=== PATIENT | male | born 1985 | race African-American/Black ===

== ENCOUNTER 2020-03-29 17:35 | Emergency (ER) | payer OTHER ==
[~2020-03-29] VITALS: Ht 185.4 cm; Wt 93.4 kg
[2020-03-29 17:58] VITALS: BP 104/62
--- NOTE | 2020-03-29 18:17 | Emergency Room Report ---
History of Present Illness General Chief Complaint: Upper Respiratory Illness Source: Patient Present Illness HPI 34-year-old male with no significant past medical history here complaining of waking up today being short of breath however denies cough and congestion, loss of taste and smell, abdominal pain, nausea vomiting diarrhea. Reports that he has been walking a lot and feels dehydrated however vital signs are within normal limits. Is able to tolerate oral hydration. Vital signs within normal limit and afebrile. Denies chest pain chest pain radiation. Reports that he has been a smoker for the past 7 to 10 years and also smokes marijuana on a daily basis. Has not taken medication for symptom relief. Denies being around a big crowd of people. Appears to be disheveled. Denies any recent travel. Allergies: Coded Allergies: PENICILLINS (Verified Allergy, Unknown, 03/29/20) COVID-19 Screening Contact w/high risk pt: No Recent Travel to affected area: No Experienced COVID-19 symptoms?: Yes COVID-19 symptoms experienced: Shortness of Breath COVID-19 Testing performed FINANCIAL ECONOMIST: No Patient History Past Medical History: see triage record Past Surgical History: none Pertinent Family History: none Social History: Reports: smoking - Smoking 7 cigarettes a day for the past 18 years, drug use - Daily use of marijuana Immunizations: UTD Reviewed Nursing Documentation: PMH: Agreed; PSxH: Agreed Nursing Documentation-PMH Past Medical History: No Stated History Review of Systems All Other Systems: negative except mentioned in HPI Physical Exam Vital Signs Date Time Temp Pulse Resp B/P (MAP) Pulse Ox O2 Delivery O2 Flow Rate FiO2 03/29/20 17:52 98.2 96 20 104/62 (76) 97 Room Air Sp02 EP Interpretation: reviewed, normal General Appearance: no apparent distress, alert, GCS 15, non-toxic Head: normocephalic, atraumatic Eyes: bilateral eye normal inspection, bilateral eye PERRL ENT: hearing grossly normal, normal pharynx, no angioedema, normal voice Neck: full range of motion, supple/symm/no masses Respiratory: chest non-tender, lungs clear, normal breath sounds, no rhonchi, no wheezing, speaking full sentences Cardiovascular #1: regular rate, rhythm, no edema, no murmur Gastrointestinal: normal bowel sounds, non tender, soft, non-distended, no guarding, no rebound Rectal: deferred Genitourinary: no CVA tenderness Musculoskeletal: back normal Neurologic: alert, motor strength/tone normal, oriented x3, sensory intact, responsive, speech normal Psychiatric: judgement/insight normal, memory normal, mood/affect normal, no suicidal/homicidal ideation Skin: no rash Lymphatic: no adenopathy Medical Decision Making PA Attestation All my diagnosis and treatment plans were reviewed ad discussed with my supervising physician Dr. Hernandez Diagnostic Impression: Primary Impression: SOB (shortness of breath) Additional Impressions: Dehydration Upper respiratory infection ER Course 34-year-old male with no significant past medical history here complaining of waking up today being short of breath however denies cough and congestion, loss of taste and smell, abdominal pain, nausea vomiting diarrhea. Reports that he has been walking a lot and feels dehydrated however vital signs are within normal limits. Is able to tolerate oral hydration. Vital signs within normal limit and afebrile. Denies chest pain chest pain radiation. Reports that he has been a smoker for the past 7 to 10 years and also smokes marijuana on a daily basis. Has not taken medication for symptom relief. Denies being around a big crowd of people. Appears to be disheveled. Denies any recent travel. Ddx considered but are not limited to: Coronavirus, bronchitis, PNA, URI viral, bacterial bronchitis Vital signs: are WNL, pt. is afebrile H&PE are most consistent with: Shortness of breath and upper respiratory infection possibly due to coronavirus, dehydration however no IV fluid needed patient tolerating oral hydration Nausea vomiting ORDERS: Chest x-ray, albuterol, prednisone, azithromycin due to patient smoking status ED INTERVENTIONS: None required at this time. DISCHARGE: At this time pt. is stable for d/c to home. Will provide printed patient care instructions, and any necessary prescriptions. Care plan and follow up instructions have been discussed with the patient prior to discharge. Patient take medication as directed, follow-up primary doctor, increase oral hydration, gave coughing information to across the street. Tested for COVID. If worsening symptoms return to the emergency room Chest X-Ray Diagnostic Results Chest X-Ray Diagnostic Results : Chest X-Ray Ordered: Yes # of Views/Limited/Complete: 1 View Indication: Shortness of Breath EP Interpretation: Yes PABLO Xray: Interpretation reviewed, by supervising MD, and agrees with findings. Interpretation: no consolidation, no effusion, no pneumothorax Impression: No acute disease Electronically Signed by: Ama Shahid PA-C Last Vital Signs Date Time Temp Pulse Resp B/P (MAP) Pulse Ox O2 Delivery O2 Flow Rate FiO2 03/29/20 17:58 98.2 20 104/62 97 Room Air 03/29/20 17:58 96 Disposition: HOME, SELF-CARE Scripts Albuterol Sulfate (VENTOLIN HFA) 18 Gm Hfa.aer.ad 2 PUFFS INH EVERY 6 HOURS, #18 GM 0 Refills Prov: Ama Mcdonald 03/29/20 Prednisone* (PREDNISONE*) 20 Mg Tablet 40 MG ORAL DAILY for 5 Days, #10 TAB Prov: Ama Mcdonald 03/29/20 Azithromycin* (ZITHROMAX*) 250 Mg Tablet 250 MG ORAL DAILY, #6 TAB 0 Refills Take two tables once daily for 1 day, then one tablet once daily for 4 days. Prov: Ama Mcdonald 03/29/20 Patient Instructions: Dehydration, Adult, [id number], Shortness of Breath, [id number], Upper Respiratory Infection, Adult Additional Instructions: Take medication as directed, follow primary doctor, increase oral hydration, self quarantine for 14 days, I attached contact information to the [facility] testing center which is across the street highly recommend that you make appointment with them if symptoms do not improve in 2 to 3 days. If worsening symptoms return to the emergency room Ama Mcdonald Mar 29, 2020 18:17
[2020-03-29] MEDS ORDERED: PREDNISONE20 MG ORAL (18:18)
[2020-03-29] MEDS ORDERED: VENTOLIN HFA18 GM INH (18:18)
[2020-03-29] MEDS ORDERED: ZITHROMAX250 MG ORAL (18:18)
[2020-03-29 18:23] VITALS: BP 104/62
--- NOTE | 2020-03-30 13:04 | Diagnostic Imaging Report ---
Indication: Shortness of breath Technique: One view of the chest Comparison: none Findings: Lungs and pleural spaces are clear. Heart size is normal. Impression: No acute process
== END 2020-03-29 18:22 | disposition home or self-care (01) ==
LOC: EMR 18:14
DX: R06.02 Shortness of breath (principal); E86.0 Dehydration; J06.9 Acute upper respiratory infection, unspecified; Z88.0 Allergy status to penicillin; F17.210 Nicotine dependence, cigarettes, uncomplicated
CPT/HCPCS: 71045; Z7502; 99283

== ENCOUNTER 2020-08-07 21:37 | Emergency (ER) | payer OTHER ==
[~2020-08-07] VITALS: Ht 185.4 cm; Wt 111.1 kg
[~2020-08-07 21:37] MED LIST: PREDNISONE20 MG ORAL; VENTOLIN HFA18 GM INH; ZITHROMAX250 MG ORAL
--- NOTE | 2020-08-07 21:40 | NUR ---
ED Nurse Note: Pt not in waiting room
--- NOTE | 2020-08-07 21:58 | Emergency Room Report ---
History of Present Illness General Chief Complaint: Dyspnea/Respdistress Source: Patient Present Illness HPI Patient is a 34-year-old male presents for increased shortness of breath. Had brief episode of shortness of breath . Patient a prior history of asthma. He had run out of his inhaler. Denies any fever or cough. Denies any leg pain or swelling. No prior cardiac history. Has no prior history of hypertension or diabetes. Is a daily marijuana smoker. Patient denies any other current complaints. Patient denies any current shortness of breath or chest pain. 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 Patient History Past Medical History: see triage record Reviewed Nursing Documentation: PMH: Agreed; PSxH: Agreed Nursing Documentation-PMH Past Medical History: No History, Except For Hx Asthma: Yes Review of Systems All Other Systems: negative except mentioned in HPI Physical Exam Vital Signs Date Time Temp Pulse Resp B/P (MAP) Pulse Ox O2 Delivery O2 Flow Rate FiO2 08/07/20 21:47 98.2 77 20 122/72 (89) 95 Room Air General Appearance: well appearing, no apparent distress, alert, GCS 15 Head: normocephalic, atraumatic ENT: hearing grossly normal, normal voice Neck: full range of motion, supple Respiratory: lungs clear, normal breath sounds, no respiratory distress, speaking full sentences Cardiovascular #1: normal inspection, regular rate, rhythm, no edema Gastrointestinal: normal inspection Musculoskeletal: normal inspection, no calf tenderness Neurologic: alert, motor strength/tone normal, software development coordinator III-XII nml as tested, normal gait Psychiatric: mood/affect normal Skin: no rash Medical Decision Making Diagnostic Impression: Primary Impression: Asthma ER Course Patient presented for a brief episode of shortness of breath. Differential diagnosis include was not limited to asthma, pneumonia, coronavirus infection among others. Patient has a benign exam and does not appear to require any imaging or laboratory testing at this time. Patient does not have any known cardiac risk factors and does not appear to have any evidence of acute cardiac disease at this time. Patient states he is here for a refill of inhaler. Patient was noted to be smoking marijuana in the parking lot. Does not appear to have any evidence of any active disease at this time. Chest x-ray was ordered to evaluate for possible pneumothorax. Chest x-ray showed no evidence of acute pathology. His lung sounds are clear. He has good air movement. Patient appears to be stable for outpatient management. He was given prescription for albuterol. He was advised to follow-up with his doctor for recheck. He is to return if worse. 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 There may be some rail switch operator discrepancies related to use of this software EKG Diagnostic Results Rate: normal - 71 Rhythm: NSR ST Segments: no acute changes Last Vital Signs Date Time Temp Pulse Resp B/P (MAP) Pulse Ox O2 Delivery O2 Flow Rate FiO2 08/07/20 21:47 98.2 77 20 122/72 (89) 95 Room Air Status: improved Disposition: HOME, SELF-CARE Condition: Stable Scripts Albuterol Sulfate (VENTOLIN HFA) 18 Gm Hfa.aer.ad 2 PUFFS INH EVERY 6 HOURS, #18 GM 0 Refills Prov: Dashawn Caba MD 08/07/20 Dashawn Caba MD Aug 07, 2020 21:58
[2020-08-07] MEDS ORDERED: VENTOLIN HFA18 GM INH (21:59)
--- NOTE | 2020-08-07 22:00 | NUR ---
ED Nurse Note: Pt ambulated to ED from home c/o SOB and chest tightness after running out of his inhaler. Pt outside smoking currently. VSS. Pt with audible mild wheezes. Pt placed in isolation room, ERMD at bedside. Spo2 100% on room air
--- NOTE | 2020-08-07 22:13 | Diagnostic Imaging Report ---
EXAM: XR Chest, 1 View CLINICAL HISTORY: SOB TECHNIQUE: Frontal view of the chest. COMPARISON: FINDINGS: Lungs: Low lung volumes with bronchovascular crowding. No consolidation, pleural effusion, or pneumothorax. Pleural space: See above. Heart: Unremarkable. No cardiomegaly. Mediastinum: Unremarkable. Bones/joints: No acute abnormality IMPRESSION: 1. Low lung volumes with bronchovascular crowding. 2. Otherwise no acute cardiopulmonary disease. 3. If there is continued concern, recommend frontal and lateral chest radiographs or CT.
[2020-08-07 22:15] VITALS: BP 122/72
--- NOTE | 2020-08-07 22:15 | NUR ---
ER DISCHARGE NOTE: Patient is cleared to be discharged per ERMD, pt is aox4, on room air, with stable vital signs. pt was given dc and prescription instructions, pt was able to verbalize understanding, pt id band removed. pt is able to ambulate with steady gait. pt took all belongings.
--- NOTE | 2020-08-08 19:30 | Cardiology Report ---
APPROVED REPORT EKG Measurement Heart [id number] <Conclusion> Normal sinus rhythm Normal ECG
== END 2020-08-07 22:15 | disposition home or self-care (01) ==
LOC: EMR 22:06
DX: J45.909 Unspecified asthma, uncomplicated (principal); Z88.0 Allergy status to penicillin; F12.90 Cannabis use, unspecified, uncomplicated
CPT/HCPCS: 71045; 93005; Z7502; 99283

== ENCOUNTER 2020-09-15 01:25 | Emergency (ER) | payer OTHER ==
[~2020-09-15] VITALS: Ht 185.4 cm; Wt 104.3 kg
--- NOTE | 2020-09-15 01:32 | Emergency Room Report ---
History of Present Illness General Chief Complaint: Male Urogenital Problems Source: Patient Present Illness [facility] Disclaimer: Please note that this report is being documented using DRAGON technology. This can lead to erroneous entry secondary to incorrect interpretation by the dictating instrument. HPI: 34-year-old male presents for evaluation of testicular pain. Symptom onset 2 hours ago. He states he awoke feeling aching in both of his testicles over the posterior aspect as well as posterior swelling. Denies swelling of the scrotum or in the groins. Denies masses or bulging. Denies penile discharge, discomfort, dysuria, hematuria. No sexual contact for the last 6 months. Denies fever, chills, abdominal pain, nausea, vomiting. Denies recent trauma. 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 EOMI. Resp: Normal work of breathing Abdomen: Soft, nontender, nondistended. New: Circumcised male. Testicles in anatomic position. Tender to palpation over posterior aspect. No mass identified. No inguinal defects. No hernia. No discharge or drainage or bleeding. Cremasteric reflex present bilaterally. Skin: Intact. No abrasions, laceration or rash over the exposed skin MSK: Normal tone and bulk. Moving all extremities. No obvious deformity. Neuro: Awake and alert. Mentating appropriately Medical Decision Making Diagnostic Impression: Primary Impression: Hydrocele of testis ER Course Is a 34-year-old male presenting for evaluation of testicular pain. Differential includes was not limited to epididymitis, orchitis, hydrocele, raine ticular torsion, UTI, hernia among others. No palpable hernia. No clinical signs of testicular torsion. Preliminary ultrasound report shows bilateral hydroceles with right greater than left. No evidence of epididymitis, torsion, mass identified. Will refer to outpatient urology. Laboratory Tests Test 09/15/20 02:25 Urine Color Yellow Urine Appearance Clear Urine pH 5 (4.5-8.0) Urine Specific [place] 1.025 (1.005-1.035) Urine Protein Negative (NEGATIVE) Urine Glucose (UA) Negative (NEGATIVE) Urine Ketones Negative (NEGATIVE) Urine Blood Negative (NEGATIVE) Urine Nitrite Negative (NEGATIVE) Urine Bilirubin Negative (NEGATIVE) Urine Urobilinogen 1 MG/DL (0.0-1.0) H Urine Leukocyte Esterase 1+ (NEGATIVE) H Urine RBC 0 /HPF (0 - 0) Urine WBC 0-2 /HPF (0 - 0) Urine Squamous Epithelial Cells Few /LPF (NONE/OCC) Urine Bacteria None /HPF (NONE) Last Vital Signs Date Time Temp Pulse Resp B/P (MAP) Pulse Ox O2 Delivery O2 Flow Rate FiO2 09/15/20 01:24 98.4 86 18 150/77 (101) 97 Room Air Disposition: HOME, SELF-CARE Condition: Stable Scripts Diphenhydramine HCl/Zinc Acet (Benadryl Itch Stopping Crm) 28.3 Gm Cream..g. 1 APPLIC TOPIC DAILY, #1 TUBE Prov: Anish Torres MD 09/15/20 Ibuprofen* (MOTRIN*) 600 Mg Tablet 600 MG ORAL Q6H PRN for For Pain, #30 TAB 0 Refills Prov: Anish Torres MD 09/15/20 Anish Torres MD Sep 15, 2020 01:32
[2020-09-15] MEDS ORDERED: Morphine Sulfate 2mg/ml Inj(IV/IM USE ONLY) IM ONE (01:45)
--- NOTE | 2020-09-15 01:57 | NUR ---
ED Nurse Note: Ultrasound at bedside.
[2020-09-15] MEDS ORDERED: IBUPROFEN600 M1 ORAL (02:16)
[2020-09-15 02:34] LABS: APPEARANCE,URINE CLEAR; BILIRUBIN, URINE NEGATIVE (NEGATIVE); COLOR,URINE YELLOW; GLUCOSE, URINE (UA) NEGATIVE (NEGATIVE); KETONES,URINE NEGATIVE (NEGATIVE); LEUKOCYTE ESTERASE ,URINE 1+ (NEGATIVE); NITRITE,URINE NEGATIVE (NEGATIVE); PH,URINE 5 (4.5-8.0); PROTEIN,URINE NEGATIVE (NEGATIVE); UROBILINOGEN,URINE 1 MG/DL (0.0-1.0)
[2020-09-15 02:35] VITALS: BP 151/81
[2020-09-15] MEDS ORDERED: BENADRYL CRE1 APPLIC TOPIC (02:41)
[2020-09-15 02:45] VITALS: BP 150/77
--- NOTE | 2020-09-15 02:45 | NUR ---
ER DISCHARGE NOTE: Patient is cleared to be discharged per ERMD, pt is aox4, on room air, with stable vital signs. pt was given dc and prescription instructions, pt was able to verbalize understanding, pt id band removed without complications. pt is able to ambulate with steady gait. pt took all belongings.
--- NOTE | 2020-09-15 03:23 | Diagnostic Imaging Report ---
EXAM: US Scrotum CLINICAL HISTORY: PAIN TECHNIQUE: Real-time ultrasound of the scrotum with color Doppler and image documentation. COMPARISON: No relevant prior studies available. FINDINGS: Right testicle: Unremarkable. No mass. No torsion. 5 cm Left testicle: Unremarkable. No mass. No torsion. 4.6 cm Epididymides: Unremarkable. Scrotum: Tiny bilateral hydroceles of likely no additional clinical significance. Other findings: No acute abnormality. Unremarkable testes. IMPRESSION: 1. No acute abnormality. 2. Unremarkable testes. 3. Tiny bilateral hydroceles of likely no additional clinical significance. 4. Otherwise unremarkable study.
== END 2020-09-15 02:45 | disposition home or self-care (01) ==
LOC: EDBD 01:25 → EMR 01:50
DX: N43.3 Hydrocele, unspecified (principal); Z88.0 Allergy status to penicillin
CPT/HCPCS: 76870; 81003; 96372; J2270; Z7502; 99284